=== PATIENT | male | born 1990 | race Caucasian/White ===

== ENCOUNTER 2016-10-28 07:44 | Emergency (ER) | payer SELFPAY ==
[~2016-10-28 07:44] MED LIST: NORCO 325 MG-51 TAB PO
== END 2016-10-28 17:18 ==
LOC: ED 07:44
DX: F29 Unspecified psychosis not due to a substance or known physiological condition (principal); F22 Delusional disorders; F23 Brief psychotic disorder; F17.210 Nicotine dependence, cigarettes, uncomplicated; F11.10 Opioid abuse, uncomplicated; F41.1 Generalized anxiety disorder; F12.10 Cannabis abuse, uncomplicated

== ENCOUNTER 2017-11-26 15:44 | Emergency (ER) | payer OTHER ==
[~2017-11-26] VITALS: Ht 177.8 cm; Wt 86.8 kg
[2017-11-26 17:04] LABS: ALBUMIN 4.7 g/dL (3.5-5.0); CALCIUM 9.4 mg/dL (8.4-10.2); POTASSIUM 4.2 mmol/L (3.6-5.0); TOTAL BILIRUBIN 0.6 mg/dL (0.2-1.3); TOTAL PROTEIN 8.2 g/dL (6.3-8.2)
[2017-11-26 17:45] VITALS: BP 147/86
[2017-11-26 17:53] LABS: BUN/CREATININE RATIO 8.7 (6.0-26.0)
[2017-11-26 17:59] LABS: EOS % 0.6 % (0.0-4.0); HEMATOCRIT 46.5 % (42.0-52.0); HEMOGLOBIN 16.1 g/dL (13.5-18.0); LYMPH# 1.5 (1.50-4.00); MEAN CELL VOLUME 91 fl (78-100); MEAN CORPUSCULAR HEMOGLOBIN 31 pg (27-31); MEAN CORPUSCULAR HGB CONC 35 g/dL (33-37); MEAN PLATELET VOLUME 11.3 fl (7.4-10.4); MONO # 0.7 (0.20-0.80); NEU # 4.7 (1.40-6.50); PLATELET COUNT 164 K/mm3 (130-400); RED BLOOD COUNT 5.14 M/mm3 (4.20-5.60); RED CELL DISTRIBUTION WIDTH 12.7 % (11.5-14.5); WHITE BLOOD COUNT 6.9 K/mm3 (4.8-10.8)
[2017-11-26 20:04] LABS: URINE WBC 0 /hpf (0-3)
[2017-11-26 20:38] LABS: URINE APPEARANCE CLEAR; URINE COLOR YELLOW
[2017-11-26 20:42] LABS: URINE BILIRUBIN NEGATIVE (NEGATIVE); URINE BLOOD NEGATIVE (NEGATIVE); URINE GLUCOSE NEGATIVE (NEGATIVE); URINE KETONE NEGATIVE (NEGATIVE); URINE LEUKOCYTE ESTERASE NEGATIVE (NEGATIVE); URINE NITRATE NEGATIVE (NEGATIVE); URINE PROTEIN(semi-quant) NEGATIVE (NEGATIVE); URINE UROBILINOGEN NORMAL (NORMAL)
== END 2017-11-26 17:45 | disposition home or self-care (01) ==
LOC: ED 15:44
PROVIDERS: Physician Assistant
DX: M54.2 Cervicalgia (principal); V43.62XA Car passenger injured in collision with other type car in traffic accident, initial encounter; Y92.410 Unspecified street and highway as the place of occurrence of the external cause
CPT/HCPCS: J1885

== ENCOUNTER → 2017-12-13 | Outpatient (CLI) | payer SELFPAY ==
[2017-11-26 17:45] VITALS: BP 147/86
[2017-12-13 11:23] LABS: EOS # 0.1 (0.04-0.40); EOS % 0.8 % (0.0-4.0); HEMATOCRIT 50.8 % (42.0-52.0); HEMOGLOBIN 17.6 g/dL (13.5-18.0); LYMPH# 1.2 (1.50-4.00); MEAN CELL VOLUME 91 fl (78-100); MEAN CORPUSCULAR HEMOGLOBIN 32 pg (27-31); MEAN CORPUSCULAR HGB CONC 35 g/dL (33-37); MEAN PLATELET VOLUME 10.7 fl (7.4-10.4); MONO # 0.6 (0.20-0.80); NEU # 7.1 (1.40-6.50); PLATELET COUNT 198 K/mm3 (130-400); RED BLOOD COUNT 5.58 M/mm3 (4.20-5.60)
[2017-12-13 11:31] LABS: ALBUMIN 5.2 g/dL (3.5-5.0); BUN/CREATININE RATIO 9.3 (6.0-26.0); CALCIUM 9.8 mg/dL (8.4-10.2); POTASSIUM 4.6 mmol/L (3.6-5.0); TOTAL BILIRUBIN 0.5 mg/dL (0.2-1.3); TOTAL PROTEIN 8.9 g/dL (6.3-8.2)
[2017-12-13 23:05] LABS: HEPATITIS C ANTIBODY Negative (())
== END ==
LOC: LAB 10:56
PROVIDERS: Family Medicine
DX: Z00.00 Encounter for general adult medical examination without abnormal findings (principal); Z72.89 Other problems related to lifestyle

== ENCOUNTER → 2017-12-30 | Outpatient (CLI) | payer OTHER | LOC: RAD 15:00 | DX: M51.24 Other intervertebral disc displacement, thoracic region (principal) ==

== ENCOUNTER 2018-01-23 11:38 | Emergency (ER) | payer SELFPAY ==
[~2018-01-23] VITALS: Wt 80.4 kg
[2018-01-23] MEDS ORDERED: XANAX0.5 M1 PO (12:12)
[2018-01-23] MEDS ORDERED: NORCO 325 MG-7.1 TAB PO (12:13)
[2018-01-23] MEDS ORDERED: IBU800 M1 PO (12:58)
[2018-01-23 13:27] LABS: HEMATOCRIT 47.3 % (42.0-52.0); HEMOGLOBIN 16.8 g/dL (13.5-18.0); MEAN CELL VOLUME 88 fl (78-100); MEAN CORPUSCULAR HEMOGLOBIN 31 pg (27-31); MEAN CORPUSCULAR HGB CONC 36 g/dL (33-37); RED BLOOD COUNT 5.38 M/mm3 (4.20-5.60); RED CELL DISTRIBUTION WIDTH 12.5 % (11.5-14.5); WHITE BLOOD COUNT 2.9 K/mm3 (4.8-10.8)
[2018-01-23 13:29] LABS: MEAN PLATELET VOLUME 12.2 fl (7.4-10.4); PLATELET COUNT 36 K/mm3 (130-400)
[2018-01-23 13:36] LABS: ALBUMIN 3.8 g/dL (3.5-5.0); BUN/CREATININE RATIO 8.7 (6.0-26.0); CALCIUM 8.5 mg/dL (8.4-10.2); POTASSIUM 3.5 mmol/L (3.6-5.0); TOTAL BILIRUBIN 3.3 mg/dL (0.2-1.3); TOTAL PROTEIN 6.9 g/dL (6.3-8.2)
[2018-01-23 13:41] LABS: BAND 24 % (0-10); NEUTROPHILS 46 % (42-75)
[2018-01-23 13:42] LABS: MONOCYTE 9 % (3-10)
[2018-01-23 13:44] LABS: LYMPHOCYTE 21 % (20-51)
[2018-01-23 14:24] LABS: URINE APPEARANCE CLEAR; URINE COLOR YELLOW; URINE GLUCOSE NEGATIVE (NEGATIVE); URINE PROTEIN(semi-quant) NEGATIVE (NEGATIVE)
[2018-01-23 14:25] LABS: URINE BILIRUBIN NEGATIVE (NEGATIVE); URINE BLOOD TRACE (NEGATIVE); URINE KETONE TRACE (NEGATIVE); URINE LEUKOCYTE ESTERASE NEGATIVE (NEGATIVE); URINE NITRATE NEGATIVE (NEGATIVE); URINE UROBILINOGEN 1 mg/dL (NORMAL)
[2018-01-23 14:54] LABS: PARTIAL THROMBOPLASTIN TIME 28.7 SECONDS (21.0-32.0); PROTHROMBIN TIME 9.9 SECONDS (9.0-12.0)
[2018-01-23 18:58] VITALS: BP 123/83
[2018-01-24 13:30] LABS: HEPATITIS C ANTIBODY Negative (())
== END 2018-01-23 19:40 | disposition short-term general hospital (02) ==
LOC: ED 11:38
PROVIDERS: Physician Assistant
DX: R50.9 Fever, unspecified (principal); R74.8 Abnormal levels of other serum enzymes; D72.825 Bandemia; R11.2 Nausea with vomiting, unspecified; R10.9 Unspecified abdominal pain; M54.5 Low back pain; F17.200 Nicotine dependence, unspecified, uncomplicated
CPT/HCPCS: J2405; J7030; J7120; Q9967

== ENCOUNTER 2018-01-23 16:00 | Outpatient (RCR) | payer OTHER ==
[~2018-01-23 16:00] MED LIST changes: +IBU800 M1 PO; +NORCO 325 MG-7.1 TAB PO; +XANAX0.5 M1 PO
== END 2018-01-23 16:30 | disposition home or self-care (01) ==
LOC: PT 16:00
DX: M54.6 Pain in thoracic spine (principal)
CPT/HCPCS: G0283-GP

== ENCOUNTER → 2018-01-29 | Outpatient (CLI) | payer SELFPAY ==
[2018-01-23 18:58] VITALS: BP 123/83
[2018-01-29 10:02] LABS: HEMATOCRIT 49.9 % (42.0-52.0); MEAN CELL VOLUME 91 fl (78-100); MEAN CORPUSCULAR HEMOGLOBIN 31 pg (27-31); MEAN CORPUSCULAR HGB CONC 34 g/dL (33-37); PLATELET COUNT 184 K/mm3 (130-400); RED BLOOD COUNT 5.49 M/mm3 (4.20-5.60); RED CELL DISTRIBUTION WIDTH 13.6 % (11.5-14.5); WHITE BLOOD COUNT 10.4 K/mm3 (4.8-10.8)
[2018-01-29 10:07] LABS: MEAN PLATELET VOLUME 12.3 fl (7.4-10.4)
[2018-01-29 10:09] LABS: ALBUMIN 4.1 g/dL (3.5-5.0); BUN/CREATININE RATIO 6.9 (6.0-26.0); POTASSIUM 4.2 mmol/L (3.6-5.0); TOTAL BILIRUBIN 1.2 mg/dL (0.2-1.3); TOTAL PROTEIN 8.5 g/dL (6.3-8.2)
[2018-01-29 11:11] LABS: LYMPHOCYTE 29 % (20-51); MONOCYTE 8 % (3-10); NEUTROPHILS 43 % (42-75)
== END ==
LOC: LAB 09:14
PROVIDERS: Family Medicine
DX: D69.6 Thrombocytopenia, unspecified (principal); A77.40 Ehrlichiosis, unspecified; R74.0 Nonspecific elevation of levels of transaminase and lactic acid dehydrogenase [LDH]

== ENCOUNTER → 2018-12-10 | Outpatient (CLI) | payer OTHER ==
[2018-12-10 09:51] LABS: ALBUMIN 4.7 g/dL (3.5-5.0); ALCOHOL IN-HOUSE < 10 mg/dL; ALT/SGPT 28 U/L (21-72); AST-SGOT 38 U/L (17-59); CALCIUM 9.5 mg/dL (8.4-10.2); CARBON DIOXIDE 29 mmol/L (22-30); GLUCOSE 114 mg/dL (75-110); POTASSIUM 3.3 mmol/L (3.6-5.0); SODIUM 142 mmol/L (137-145); TOTAL BILIRUBIN 0.6 mg/dL (0.2-1.3); TOTAL PROTEIN 7.6 g/dL (6.3-8.2)
[2018-12-10 09:53] LABS: HEMATOCRIT 44.6 % (42.0-52.0); HEMOGLOBIN 15.3 g/dL (13.5-18.0); MEAN CELL VOLUME 86 fl (78-100); MEAN CORPUSCULAR HEMOGLOBIN 29 pg (27-31); MEAN CORPUSCULAR HGB CONC 34 g/dL (33-37); MEAN PLATELET VOLUME 10.8 fl (7.4-10.4); PLATELET COUNT 245 K/mm3 (130-400); RED BLOOD COUNT 5.21 M/mm3 (4.20-5.60); RED CELL DISTRIBUTION WIDTH 12.8 % (11.5-14.5); WHITE BLOOD COUNT 15.4 K/mm3 (4.8-10.8)
[2018-12-10 10:32] LABS: LYMPHOCYTE 12 % (20-51); MONOCYTE 9 % (3-10); NEUTROPHILS 77 % (42-75)
== END ==
LOC: LAB 09:19
PROVIDERS: Family Medicine
DX: E66.3 Overweight (principal); G89.29 Other chronic pain; R74.0 Nonspecific elevation of levels of transaminase and lactic acid dehydrogenase [LDH]; Z72.89 Other problems related to lifestyle

== ENCOUNTER → 2020-03-28 | Outpatient (CLI) | payer OTHER | LOC: LAB 08:20 | DX: J02.9 Acute pharyngitis, unspecified (principal); J34.89 Other specified disorders of nose and nasal sinuses; R06.02 Shortness of breath; Z20.828 Contact with and (suspected) exposure to other viral communicable diseases ==

== ENCOUNTER 2021-01-19 22:28 | Emergency (ER) | payer SELFPAY | END 2021-01-20 00:12 | disposition left against medical advice (07) | LOC: ED 22:28 | DX: S41.152A Open bite of left upper arm, initial encounter (principal); S40.811A Abrasion of right upper arm, initial encounter; F17.210 Nicotine dependence, cigarettes, uncomplicated; W54.0XXA Bitten by dog, initial encounter; Y93.69 Activity, other involving other sports and athletics played as a team or group; Y92.828 Other wilderness area as the place of occurrence of the external cause ==

== ENCOUNTER → 2021-07-03 | Outpatient (CLI) | payer SELFPAY | LOC: LAB 09:59 | DX: G89.29 Other chronic pain (principal) ==